=== PATIENT | female | born 1995 | race Caucasian/White ===

== ENCOUNTER 2017-02-11 19:13 | Emergency (ER) | payer OTHER ==
--- NOTE | 2017-02-11 19:18 | EDPHY ---
H & P Time Seen by Provider: 02/11/17 19:17 HPI/ROS: CHIEF COMPLAINT: Headache HISTORY OF PRESENT ILLNESS: The patient presents to the ED with a 3 day history of a frontal headache. The patient reports she has had some mild photophobia. She denies nausea or vomiting. The patient has had a fever without symptoms of sore throat, cough, congestion or neck stiffness. She also denies associated abdominal pain or dysuria. The patient denies significant past medical history. The patient was seen at the urgent care prior to arrival and referred to the ED for further evaluation. REVIEW OF SYSTEMS: A comprehensive 10 point review of systems is otherwise negative aside from elements mentioned in the history of present illness. Source: Patient Exam Limitations: No limitations - Family History Significant Family History: No pertinent family hx - Social History Alcohol Use: None Drug Use: None - Physical Exam Exam: General Appearance: Alert, no distress Eyes: Pupils equal and round no pallor or injection ENT, Mouth: Mucous membranes moist Respiratory: There are no retractions, lungs are clear to auscultation Cardiovascular: Regular rate and rhythm Gastrointestinal: Abdomen is soft and nontender, no masses, bowel sounds normal Neurological: A&O, normal motor function, normal sensory exam, normal cranial nerves Skin: Warm and dry, no rashes Musculoskeletal: Neck is supple nontender, supple without lymphadenopathy or meningeal symptoms Extremities: symmetrical, full range of motion Constitutional: Initial Vital Signs Temperature (C) 37 C 02/11/17 19:21 Heart Rate 95 02/11/17 19:21 Respiratory Rate 18 02/11/17 19:21 Blood Pressure 129/82 H 02/11/17 19:21 O2 Sat (%) 99 02/11/17 19:21 O2 Delivery Mode Room Air Allergies/Adverse Reactions: amoxicillin Allergy (Verified 02/11/17 19:20) Sulfa (Sulfonamide Antibiotics) Allergy (Verified 02/11/17 19:20) Home Medications: Medication Instructions Recorded Excedrin Migraine Geltab 02/11/17 Ondansetron Odt [Zofran Odt] 4 mg PO Q4PRN PRN #20 tab 02/11/17 Medical Decision Making ED Course/Re-evaluation: The patient presents to the ED with a 3 day history of headache and subjective fevers. The patient is noted to be neurologically intact. She received no antipyretics prior to arrival and is currently afebrile. The patient has a completely normal neurologic examination. The patient also has no evidence of meningismus and specifically has a negative Kernig and Brudzinski sign. The patient had an IV established. The patient received a L of normal saline, IV Toradol and Zofran. The patient's laboratory studies are noted to be within normal limits the patient has no clinical evidence of a urinary tract infection I re-evaluated the patient at 9:00 p.m.. She is in no acute distress and feeling much better after receiving Toradol and fluids. She continues to have no meningeal symptoms. The patient will be discharged home at this point time. I do not feel as if the patient has a clinical presentation consistent with bacterial meningitis. I had a lengthy discussion with the patient about returning to the ED tomorrow for recheck for any persistent headache. She should return to the ED immediately for increasing headache, rash, numbness, weakness, neurologic symptoms or other concerns. Differential Diagnosis: Differential diagnosis considered includes viral syndrome, strep pharyngitis, pyelonephritis and less likely meningitis - Data Points Laboratory Results: Laboratory Results 02/11/17 19:55 02/11/17 19:55 02/11/17 02/11/17 02/11/17 19:55 19:55 19:55 WBC 9.47 10^3/uL 10^3/uL (3.80-9.50) RBC 4.05 10^6/uL L 10^6/uL (4.18-5.33) Hgb 13.2 g/dL g/dL (12.6-16.3) Hct 38.4 % % (38.0-47.0) MCV 94.8 fL fL (81.5-99.8) MCH 32.6 pg pg (27.9-34.1) MCHC 34.4 g/dL g/dL (32.4-36.7) RDW 12.2 % % (11.5-15.2) Plt Count 224 10^3/uL 10^3/uL (150-400) MPV 9.2 fL fL (8.7-11.7) Neut % (Auto) 67.8 % % (39.3-74.2) Lymph % (Auto) 23.5 % % (15.0-45.0) [place] % (Auto) 7.0 % % (4.5-13.0) Eos % (Auto) 1.1 % % (0.6-7.6) Baso % (Auto) 0.3 % % (0.3-1.7) Nucleat RBC Rel Count 0.0 % % (0.0-0.2) Absolute Neuts (auto) 6.42 10^3/uL 10^3/uL (1.70-6.50) Absolute Lymphs (auto) 2.23 10^3/uL 10^3/uL (1.00-3.00) Absolute Monos (auto) 0.66 10^3/uL 10^3/uL (0.30-0.80) Absolute Eos (auto) 0.10 10^3/uL 10^3/uL (0.03-0.40) Absolute Basos (auto) 0.03 10^3/uL 10^3/uL (0.02-0.10) Absolute Nucleated RBC 0.00 10^3/uL 10^3/uL (0-0.01) Immature Gran % 0.3 % % (0.0-1.1) Immature Gran # 0.03 10^3/uL 10^3/uL (0.00-0.10) Sodium 135 mEq/L mEq/L (134-144) Potassium 3.6 mEq/L mEq/L (3.5-5.2) Chloride 101 mEq/L mEq/L (97-110) Carbon Dioxide 23 mEq/l mEq/l (22-31) Anion Gap 11 mEq/L mEq/L (8-16) BUN 14 mg/dL mg/dL (7-23) Creatinine 0.8 mg/dL mg/dL (0.6-1.0) Estimated GFR > 60 Glucose 95 mg/dL mg/dL (70-100) Calcium 9.4 mg/dL mg/dL (8.5-10.4) Urine Color YELLOW Urine Appearance CLEAR Urine pH 5.0 (5.0-7.5) Ur Specific [place] 1.014 (1.002-1.030) Urine Protein NEGATIVE (NEGATIVE) Urine Ketones NEGATIVE (NEGATIVE) Urine Blood NEGATIVE (NEGATIVE) Urine Nitrate NEGATIVE (NEGATIVE) Urine Bilirubin NEGATIVE (NEGATIVE) Urine Urobilinogen NEGATIVE EU EU (0.2-1.0) Ur Leukocyte Esterase NEGATIVE (NEGATIVE) Urine RBC NONE SEEN /hpf /hpf (0-3) Urine WBC 1-3 /hpf /hpf (0-3) Ur Epithelial Cells TRACE /lpf /lpf (NONE-1+) Urine Bacteria TRACE /hpf H /hpf (NONE SEEN) Urine Glucose NEGATIVE (NEGATIVE) Medications Given: Discontinued Medications Sodium Chloride (Ns) 1,000 mls @ 0 mls/hr IV ONCE ONE; Wide Open PRN Reason: Protocol Stop: 02/11/17 19:42 Last Admin: 02/11/17 19:59 Dose: 1,000 mls Ketorolac Tromethamine (Toradol) 30 mg IVP EDNOW ONE Stop: 02/11/17 19:48 Last Admin: 02/11/17 20:07 Dose: 30 mg Ondansetron HCl (Zofran) 4 mg IVP EDNOW ONE Stop: 02/11/17 19:48 Last Admin: 02/11/17 20:07 Dose: 4 mg Departure - Departure Disposition: Home, Routine, Self-Care Clinical Impression: Headache Condition: Good Instructions: Acute Headache (ED) Additional Instructions: 1. Take Ibuprofen or Motrin 600 mg by mouth three times a day. 2. Tylenol 1 gm orally 3 times a day. 3. Return to the emergency department tomorrow for recheck if your having any headache. Please return to the ED sooner for increasing pain, severe neck stiffness, numbness, weakness or other concerns. 4. Please try and increase your fluid intake. 5. Zofran as needed for nausea. Referrals: VADIM Johnston,. [Clinic] - As per Instructions
[2017-02-11 19:24] VITALS: RESP 18
[2017-02-11] MEDS ORDERED: NS 1,000 ML IV ONE (19:41)
[2017-02-11] MEDS ORDERED: ONDANSETRON 4 MG/2 ML VIAL IVP ONE (19:47)
[2017-02-11] MEDS ORDERED: KETOROLAC 30 MG/1 ML SDV IVP ONE (19:47)
[2017-02-11 20:06] LABS: % IMMATURE GRANULYOCYTES 0.3 % (0.0-1.1); ABSOLUTE IMMATURE GRANULOCYTES 0.03 10^3/uL (0.00-0.10); ADD DIFF? NO; ADD MORPH? NO; ADD SCAN? NO; ATYPICAL LYMPHOCYTE FLAG 20 (0-99); FRAGMENT RBC FLAG 0 (0-99); HEMATOCRIT 38.4 % (38.0-47.0); HEMOGLOBIN 13.2 g/dL (12.6-16.3); LEFT SHIFT FLG 0 (0-99); LIPEMIA HEMOLYSIS FLAG 90 (0-99); MEAN CELL HEMOGLOBIN 32.6 pg (27.9-34.1); MEAN CELL HEMOGLOBIN CONCENTR. 34.4 g/dL (32.4-36.7); MEAN CELL VOLUME 94.8 fL (81.5-99.8); MEAN PLATELET VOLUME 9.2 fL (8.7-11.7); PLATELET CLUMPS FLAG 0 (0-99); PLATELET COUNT 224 10^3/uL (150-400); RED BLOOD CELL COUNT 4.05 10^6/uL (4.18-5.33); RED CELL DISTRIBUTION WIDTH 12.2 % (11.5-15.2)
[2017-02-11 20:09] LABS: COLOR YELLOW; LEUKOCYTE ESTERASE,URINE NEGATIVE (NEGATIVE); NITRITE,URINE NEGATIVE (NEGATIVE)
[2017-02-11 20:11] LABS: BACTERIA TRACE /hpf (NONE SEEN)
[2017-02-11 20:13] LABS: RBC,URINE NONE SEEN /hpf (0-3)
[2017-02-11 20:19] LABS: ANION GAP 11 mEq/L (8-16); CALCIUM 9.4 mg/dL (8.5-10.4); CARBON DIOXIDE 23 mEq/l (22-31); CHLORIDE 101 mEq/L (97-110); CREATININE 0.8 mg/dL (0.6-1.0); GLOMERULAR FILTRATION RATE > 60; GLUCOSE 95 mg/dL (70-100); POTASSIUM 3.6 mEq/L (3.5-5.2); SODIUM 135 mEq/L (134-144)
[2017-02-11] MEDS ORDERED: ONDANSETRON 4MG PREPACK#2 BTL TAKEHOME ONE (20:58)
[2017-02-11 21:17] VITALS: BP 106/76; PULSE 77; TEMP 99.1; O2SAT 98
== END 2017-02-11 21:15 | disposition home or self-care (01) ==
DX: R51 Headache (principal)
CPT/HCPCS: 96374; J1885; J2405

== ENCOUNTER 2017-02-13 19:35 | Emergency (ER) | payer OTHER ==
[2017-02-13 19:41] VITALS: TEMP 98.2
[2017-02-13] MEDS ORDERED: NS 1,000 ML IV ONE (20:19)
[2017-02-13] MEDS ORDERED: DEXAMETHASONE 10 MG/ML VIAL IVP ONE (20:19)
[2017-02-13] MEDS ORDERED: HALOPERIDOL LACT 5 MG/ML INJ IVP ONE (20:19)
[2017-02-13] MEDS ORDERED: KETOROLAC 15 MG/1 ML SDV IVP ONE (20:19)
--- NOTE | 2017-02-13 20:24 | EDPHY ---
H & P Stated Complaint: PALMER, Nausea; seen at [facility] this am Time Seen by Provider: 02/13/17 20:08 HPI/ROS: Chief Complaint: Headache HPI: 21-year-old female presenting with persistent headache for the last 4-5 days. Patient states that began Friday evening after she arrived back from [place] visiting her family. She did state she did hit her head on the plane but did not really think anything of it. Woke the next morning with severe 9/10 headache. Is described as bifrontal radiating to the back of her head between her eyes. She has seen emergency department 2 days ago and had IV Toradol with some relief but the pain is persisted and gotten worse again. She was also seen again at [facility] [employer] today and got Toradol and fluids but pain is persisting. Some nausea but no vomiting. Some subjective chills but no fevers. No neck pain or stiffness. No rash. No vision or hearing changes. Has photophobia and phonophobia. Headache is not positional. Is persistent through the course of the day. ROS: 10 point Review of Systems is negative except as noted in the HPI. PMH: None Medications: None Allergies: Amoxicillin and sulfa Social History: No smoking, occasional alcohol, no recreational drug use Family History: non-contributory Physical Exam: Gen: Awake, Alert, No Distress HEENT: Nose: no rhinorrhea Eyes: PERRLA, EOMI Mouth: Moist mucosa Neck: Supple, no JVD, no meningismus, no Kernig nor Brudzinski sign Chest: nontender, lungs clear to auscultation Heart: S1, S2 normal, no murmur Abd: Soft, non-tender, no guarding Back: no CVA tenderness, no midline tenderness Ext: no edema, non-tender Skin: no rash Neuro: CN II-XII intact, Sensation grossly intact, Strength 5/5 in bilateral upper and lower extremities - Personal History LMP (Females 10-55): IUD In Place Current Tetanus/Diphtheria Vaccine: Yes Tetanus Vaccine Date: 4 yr ago - Medical/Surgical History Hx Asthma: No Hx Chronic Respiratory Disease: No Hx Diabetes: No Hx Cardiac Disease: No Hx Renal Disease: No Hx Cirrhosis: No Hx Alcoholism: No Hx HIV/AIDS: No Hx Splenectomy or Spleen Trauma: No Other PMH: PSHx: L hand surgery. PMHx: denies - Social History Smoking Status: Never smoked Constitutional: Initial Vital Signs Temperature (C) 36.8 C 02/13/17 19:37 Heart Rate 89 02/13/17 19:37 Respiratory Rate 14 02/13/17 19:37 Blood Pressure 120/83 H 02/13/17 19:37 O2 Sat (%) 99 02/13/17 19:37 O2 Delivery Mode Room Air Allergies/Adverse Reactions: amoxicillin Allergy (Verified 02/11/17 19:20) Sulfa (Sulfonamide Antibiotics) Allergy (Verified 02/11/17 19:20) Home Medications: Medication Instructions Recorded Excedrin Migraine Geltab 02/11/17 Ondansetron Odt [Zofran Odt] 4 mg PO Q4PRN PRN #20 tab 02/11/17 Medical Decision Making - Diagnostics Imaging Results: Imaging Impressions Head CT 02/13/17 20:19 Impression: 1. Normal CT brain without contrast. 2. No sinusitis. 3.Consider MRI of the brain without and with contrast enhancement, if there is continued clinical concern. Findings and recommendations discussed with Emergency Department physician, Hakan Ibarra MD at 21:48 hour, 02/13/2017. Final report concurs with initial preliminary interpretation. Imaging: Discussed imaging studies w/ on call Radiologist ED Course/Re-evaluation: Patient is feeling better after a headache cocktail. Pain is significantly improved. Nausea is better. She is tolerating p.o.. There is no abnormality on her CT scan. She has absolutely no meningismus clinical findings suggestive of meningitis or encephalitis. She has no other physical findings. She is otherwise well-appearing. Will discharge with follow-up with palpation physician and referral for a neurologist if her headache persists. - Data Points Laboratory Results: Laboratory Results 02/13/17 20:40 02/13/17 20:40 02/13/17 02/13/17 02/13/17 20:40 20:40 20:40 WBC 11.10 10^3/uL H 10^3/uL (3.80-9.50) RBC 3.86 10^6/uL L 10^6/uL (4.18-5.33) Hgb 12.7 g/dL g/dL (12.6-16.3) Hct 36.6 % L % (38.0-47.0) MCV 94.8 fL fL (81.5-99.8) MCH 32.9 pg pg (27.9-34.1) MCHC 34.7 g/dL g/dL (32.4-36.7) RDW 12.2 % % (11.5-15.2) Plt Count 250 10^3/uL 10^3/uL (150-400) MPV 9.5 fL fL (8.7-11.7) Neut % (Auto) 74.6 % H % (39.3-74.2) Lymph % (Auto) 17.8 % % (15.0-45.0) [place] % (Auto) 5.4 % % (4.5-13.0) Eos % (Auto) 1.2 % % (0.6-7.6) Baso % (Auto) 0.5 % % (0.3-1.7) Nucleat RBC Rel Count 0.0 % % (0.0-0.2) Absolute Neuts (auto) 8.29 10^3/uL H 10^3/uL (1.70-6.50) Absolute Lymphs (auto) 1.98 10^3/uL 10^3/uL (1.00-3.00) Absolute Monos (auto) 0.60 10^3/uL 10^3/uL (0.30-0.80) Absolute Eos (auto) 0.13 10^3/uL 10^3/uL (0.03-0.40) Absolute Basos (auto) 0.05 10^3/uL 10^3/uL (0.02-0.10) Absolute Nucleated RBC 0.00 10^3/uL 10^3/uL (0-0.01) Immature Gran % 0.5 % % (0.0-1.1) Immature Gran # 0.05 10^3/uL 10^3/uL (0.00-0.10) Sodium 136 mEq/L mEq/L (134-144) Potassium 3.8 mEq/L mEq/L (3.5-5.2) Chloride 106 mEq/L mEq/L (97-110) Carbon Dioxide 21 mEq/l L mEq/l (22-31) Anion Gap 9 mEq/L mEq/L (8-16) BUN 14 mg/dL mg/dL (7-23) Creatinine 0.8 mg/dL mg/dL (0.6-1.0) Estimated GFR > 60 Glucose 86 mg/dL mg/dL (70-100) Calcium 9.2 mg/dL mg/dL (8.5-10.4) Beta HCG, Qual NEGATIVE Medications Given: Discontinued Medications Dexamethasone (Decadron Injection) 10 mg IVP EDNOW ONE Stop: 02/13/17 20:20 Last Admin: 02/13/17 20:48 Dose: 10 mg Diphenhydramine HCl (Benadryl Injection) 50 mg IVP EDNOW ONE Stop: 02/13/17 20:20 Last Admin: 02/13/17 20:48 Dose: 50 mg Haloperidol Lactate (Haldol Injection) 2.5 mg IVP EDNOW ONE Stop: 02/13/17 20:20 Last Admin: 02/13/17 20:48 Dose: 2.5 mg Sodium Chloride (Ns) 1,000 mls @ 0 mls/hr IV ONCE ONE PRN Reason: Wide Open Stop: 02/13/17 20:20 Last Admin: 02/13/17 20:49 Dose: 1,000 mls Ketorolac Tromethamine (Toradol) 15 mg IVP EDNOW ONE Stop: 02/13/17 20:20 Last Admin: 02/13/17 20:48 Dose: 15 mg Departure - Departure Disposition: Home, Routine, Self-Care Clinical Impression: Headache Condition: Good Instructions: General Headache (ED) Additional Instructions: May continue to take acetaminophen alternating with ibuprofen as needed for headache. Follow up with primary care physician in 2-3 days if symptoms are not improving. Follow up with Neurology if he continues to have headache. Return to the emergency depart for increasing headache, persistent nausea or vomiting, fevers, chills, neck pain or stiffness, or any other concerns. Referrals: Susan Clay MD [Medical Doctor] - As per Instructions Juanpablo Amos MD [Medical Doctor] - As per Instructions
[2017-02-13 20:56] LABS: % IMMATURE GRANULYOCYTES 0.5 % (0.0-1.1); ABSOLUTE IMMATURE GRANULOCYTES 0.05 10^3/uL (0.00-0.10); ADD DIFF? NO; ADD MORPH? NO; ADD SCAN? NO; ATYPICAL LYMPHOCYTE FLAG 10 (0-99); FRAGMENT RBC FLAG 0 (0-99); HEMATOCRIT 36.6 % (38.0-47.0); HEMOGLOBIN 12.7 g/dL (12.6-16.3); LEFT SHIFT FLG 0 (0-99); LIPEMIA HEMOLYSIS FLAG 90 (0-99); MEAN CELL HEMOGLOBIN 32.9 pg (27.9-34.1); MEAN CELL HEMOGLOBIN CONCENTR. 34.7 g/dL (32.4-36.7); MEAN CELL VOLUME 94.8 fL (81.5-99.8); MEAN PLATELET VOLUME 9.5 fL (8.7-11.7); PLATELET CLUMPS FLAG 0 (0-99); PLATELET COUNT 250 10^3/uL (150-400); RED BLOOD CELL COUNT 3.86 10^6/uL (4.18-5.33); RED CELL DISTRIBUTION WIDTH 12.2 % (11.5-15.2)
[2017-02-13 21:04] LABS: ANION GAP 9 mEq/L (8-16); CALCIUM 9.2 mg/dL (8.5-10.4); CARBON DIOXIDE 21 mEq/l (22-31); CHLORIDE 106 mEq/L (97-110); CREATININE 0.8 mg/dL (0.6-1.0); GLOMERULAR FILTRATION RATE > 60; GLUCOSE 86 mg/dL (70-100); POTASSIUM 3.8 mEq/L (3.5-5.2); SODIUM 136 mEq/L (134-144)
[2017-02-13 22:10] VITALS: BP 110/67; PULSE 88; RESP 16; O2SAT 95
== END 2017-02-13 22:09 | disposition home or self-care (01) ==
DX: R51 Headache (principal)
CPT/HCPCS: 96374; J1200; J1885